=== PATIENT | female | born 1990 | race Caucasian/White ===

== ENCOUNTER 2021-03-23 22:14 | Emergency (ER) | payer BC, SELFPAY ==
[2021-03-23 22:16] VITALS: BP 127/76; PULSE 67; RESP 16; TEMP 36.9; O2SAT 100; BMI 28.3
[2021-03-23 23:01] LABS: Basophils # 0.1 K/mm3 (0-0.2); Basophils % 0.8 % (0.1-2.0); Chloride 106 mmol/L (98-107); Eosinophils # 0.3 K/mm3 (0.0-0.4); Hemoglobin 13.3 g/dL (12.2-16.2); Lymphocytes # 2.9 K/mm3 (0.7-4.5); Lymphocytes % 25.4 % (10-50); Mean Corpuscular Hemoglobin 27.1 pg (27.0-31.2); Mean Corpuscular Volume 79.9 fl (81-99); Mean Platelet Volume 8.4 fl (7.4-10.4); Monocytes # 0.9 K/mm3 (0.1-1.0); Monocytes % 7.4 % (1.7-9.3); Neutrophils # 7.3 K/mm3 (1.8-7.8); Neutrophils % 63.4 % (37.0-80.0); Platelet Count 252 K/mm3 (142-424); Red Blood Count 4.89 M/mm3 (4.20-5.40); Red Cell Distribution Width 13.1 % (11.5-17.5); Sodium 142 mmol/L (136-145); White Blood Count 11.5 K/mm3 (4.8-10.8)
[2021-03-23 23:04] LABS: Alanine Aminotransferase 23 U/L (12-78); Albumin Level 4.4 g/dl (3.5-5.0); Albumin/Globulin Ratio 1.1 (1.1-1.8); Alkaline Phosphatase 67 U/L (38-126); Aspartate Amino Transferase 39 U/L (14-36); Bilirubin,Total 0.4 mg/dl (0.2-1.3); Blood Urea Nitrogen 22 mg/dl (7-17); Carbon Dioxide 29 mmol/L (22.0-30.0); Creatinine Clearance Estimated 100 mL/min (50-200); Estimated Glomerular Filt Rate 73 ml/min (>60); GFR (African American) 88 ML/MIN (>60); Globulin 3.9 g/dL (1.3-3.2); Total Protein,Serum 8.3 g/dl (6.3-8.2)
[2021-03-23 23:05] LABS: Calcium 9.1 mg/dl (8.4-10.2); Glucose 82 mg/dl (74-100)
--- NOTE | 2021-03-23 23:29 | HMH.EDGENADL ---
ED Disposition Clinical Impression: Allergic reaction Qualifiers: Encounter type: initial encounter Qualified Code(s): T78.40XA - Allergy, unspecified, initial encounter Disposition: Home, Self-Care Condition on Discharge: Good Instructions: DI for General Allergic Reactions Additional Instructions: Medrol Dosepak as prescribed. Pepcid as prescribed. [id number] Benadryl 25 mg every 6 hours for 5 days. Additional instructions for ALLERGIC REACTION: See your physician as soon as possible for further evaluation. Return immediately if severe intolerable rash or itching, trouble breathing, or faintness. Prescriptions: methylPREDNISolone [Medrol 4mg tab] 4 mg PO DIRECTED #21 tab Prescription Printed Famotidine [Pepcid 20mg Tablet] 20 mg PO BID 5 Days #10 tab Prescription Printed Referrals: Provider,Referral, [Primary Care Provider] - Forms: Work/School Release - Critical Care Critical Care Time: No Attestation: On 03/23/21, the high probability of a clinically significant, sudden or life threatening deterioration of the following system(s) required my full and direct attention, intervention and personal management. The time I documented below is in addition to time spent performing reported procedures but includes the following listed in this critical care notation. Medical Decision Making - [place]icks[place] Inquiry Pt receiving controlled substance: No Vital Signs: 03/23/21 22:16 03/23/21 23:51 Temperature 98.4 F 98.2 F Temperature Source Oral Oral Pulse Rate 76 Pulse Rate [Right] 67 Respiratory Rate 16 15 Blood Pressure 117/75 Blood Pressure [Right Arm] 127/76 Blood Pressure Mean [Right Arm] 93 Blood Pressure Source Automatic Cuff Blood Pressure Position Sitting 02 Sat by Pulse Oximetry 100 Oxygen Delivery Method Room Air - Lab Data Lab Results 03/23/21 22:30: WBC 11.5 H, RBC 4.89, Hgb 13.3, Hct 39.0, MCV 79.9 L, MCH 27.1, MCHC 34.0, RDW 13.1, Plt Count 252, MPV 8.4, Neut % (Auto) 63.4, Lymph % (Auto) 25.4, [place] % (Auto) 7.4, Eos % (Auto) 3.0, Baso % (Auto) 0.8, Neut # (Auto) 7.3, Lymph # (Auto) 2.9, [place] # (Auto) 0.9, Eos # (Auto) 0.3, Baso # (Auto) 0.1 03/23/21 22:30: Sodium 142, Potassium 4.0, Chloride 106, Carbon Dioxide 29, Anion Gap 11.0, BUN 22 H, Creatinine 0.90, Estimated Creat Clear 100, Estimated GFR 73, Est GFR ( Amer) 88, Glucose 82, Calcium 9.1, Total Bilirubin 0.4, AST 39 H, ALT 23, Alkaline Phosphatase 67, Total Protein 8.3 H, Albumin 4.4, Globulin 3.9 H, Albumin/Globulin Ratio 1.1 Result diagrams: 03/23/21 22:30 03/23/21 22:30 Orders (Tests/Meds): ED MEDICATIONS Discontinued Medications Generic Name Dose Route Start Last Admin Trade Name Zach PRN Reason Stop Dose Admin Diphenhydramine HCl 25 mg 03/23/21 23:39 03/23/21 23:45 Diphenhydramine 50mg/Ml Vial IV 03/23/21 23:40 25 mg ONCE ONE Administration Medical Decision Narrative: Does not want to take prednisone as an outpatient. She says it makes her feel weird. She is agreeable to a Medrol Dosepak. Advised to continue Benadryl for 3 days. General Adult HPI - General Chief complaint: Allergic Reaction Stated complaint: reaction to meat Time Seen by Provider: 03/23/21 23:29 Mode of Arrival: Ambulatory Limitations: No Limitations Description of Symptoms (Recalled from ER Triage Doc. by RN): pt states ate a burrito from [employer] @ 7:30 and it had meat in it. pt states she is allergic to meat. pt c/o her ear are full feeling, throat closing up and face feels numb. 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 She says that she got food from [employer]. She asked them not to use any meat, but she says they put meat in her food anyway and she had a reaction. She has had itching inside of her ears and to a lesser extent generalized itching. No hives. No airway difficulty or tro
[2021-03-23 23:51] VITALS: BP 117/75; PULSE 76; RESP 15; TEMP 36.8; O2SAT 98
== END 2021-03-23 23:53 | disposition home or self-care (01) ==
PROVIDERS: Emergency Provider Emergency Medicine
DX: T78.40XA Allergy, unspecified, initial encounter (principal)
CPT/HCPCS: 80053; 85025; 99282

== ENCOUNTER 2021-06-10 14:01 | Emergency (ER) | payer OTHER, SELFPAY ==
[2021-06-10] VITALS (9 sets, daily range): BP systolic 111–169; BP diastolic 62–97; PULSE 50–72; RESP 12–21; TEMP 36.8–36.9; O2SAT 97–100; BMI 28.3
--- NOTE | 2021-06-10 14:01 | ECG_ITS ---
APPROVED REPORT Exam: Resting ECG HR:61 bpm ECG Measurements Heart Rate 61 AXES LA 152 P 48 QRSd 78 QRS 26 QT 440 T 21 QTc 442 Conclusion Normal sinus rhythm Low voltage QRS ST abnormality, possible digitalis effect Abnormal ECG Electronically signed by : Dewayne Gould MD 06/12/2021 18:00:08
--- NOTE | 2021-06-10 14:24 | HMH.EDGENADL ---
ED Disposition Clinical Impression: Atypical chest pain Disposition: Home, Self-Care Condition on Discharge: Good Instructions: DI for Atypical Chest Pain Additional Instructions: Additional instructions for CHEST PAIN: See your physician as soon as possible for further evaluation. Return immediately if worsening chest pain, vomiting, shortness of breath, fever, coughing of blood. Referrals: Provider,Referral, [Referring] - Forms: Work/School Release - Critical Care Critical Care Time: No Attestation: On 06/10/21, the high probability of a clinically significant, sudden or life threatening deterioration of the following system(s) required my full and direct attention, intervention and personal management. The time I documented below is in addition to time spent performing reported procedures but includes the following listed in this critical care notation. Medical Decision Making - Dickson Inquiry Pt receiving controlled substance: No Vital Signs: 06/10/21 14:04 06/10/21 14:10 06/10/21 14:30 Temperature 98.4 F Temperature Source Oral Pulse Rate 70 63 Pulse Rate [Left Radial] 61 Respiratory Rate 14 18 15 Blood Pressure 130/83 138/89 Blood Pressure [Right Arm] 130/83 Blood Pressure Mean 100 101 Blood Pressure Mean [Right Arm] 98 Blood Pressure Source Blood Pressure Source [Right Arm] Automatic Cuff Blood Pressure Position Blood Pressure Position [Right Arm] Supine 02 Sat by Pulse Oximetry 100 100 99 Oxygen Delivery Method Room Air 06/10/21 15:01 06/10/21 15:30 06/10/21 16:50 Temperature Temperature Source Pulse Rate 59 L 60 55 L Pulse Rate [Left Radial] Respiratory Rate 21 12 16 Blood Pressure 123/89 121/77 162/90 H Blood Pressure [Right Arm] Blood Pressure Mean 101 91 109 Blood Pressure Mean [Right Arm] Blood Pressure Source Blood Pressure Source [Right Arm] Blood Pressure Position Blood Pressure Position [Right Arm] 02 Sat by Pulse Oximetry 100 97 100 Oxygen Delivery Method 06/10/21 17:01 06/10/21 18:26 Temperature Temperature Source Pulse Rate 57 L 50 L Pulse Rate [Left Radial] Respiratory Rate 18 16 Blood Pressure 169/97 H 114/79 Blood Pressure [Right Arm] Blood Pressure Mean 111 Blood Pressure Mean [Right Arm] Blood Pressure Source Automatic Cuff Blood Pressure Source [Right Arm] Blood Pressure Position Sitting Blood Pressure Position [Right Arm] 02 Sat by Pulse Oximetry 100 100 Oxygen Delivery Method Room Air - Lab Data Lab Results 06/10/21 14:00: WBC 9.0, RBC 4.62, Hgb 12.8, Hct 38.3, MCV 82.9, MCH 27.7, MCHC 33.5, RDW 13.1, Plt Count 308, MPV 8.6, Neut % (Auto) 65.8, Lymph % (Auto) 26.1, [place] % (Auto) 4.6, Eos % (Auto) 2.7, Baso % (Auto) 0.8, Neut # (Auto) 5.9, Lymph # (Auto) 2.3, [place] # (Auto) 0.4, Eos # (Auto) 0.2, Baso # (Auto) 0.1 06/10/21 14:00: Sodium 140, Potassium 3.6, Chloride 107, Carbon Dioxide 28, Anion Gap 8.6, BUN 11, Creatinine 0.70, Estimated Creat Clear 128, Estimated GFR 97, Est GFR ( Amer) 117, Glucose 107 H, Calcium 8.9, Troponin I < 0.01 06/10/21 14:21: Urine Color Straw, Urine Appearance Clear, Urine pH 6.0, Ur Specific [place] 1.010, Urine Protein Negative, Urine Glucose (UA) Negative, Urine Ketones Negative, Urine Blood Trace-i, Urine Nitrate Negative, Urine Bilirubin Negative, Urine Urobilinogen 0.2, Ur Leukocyte Esterase Negative, Urine RBC Occasional, Urine Bacteria Trace 06/10/21 14:21: Urine HCG, Qual Negative 06/10/21 18:00: Troponin I < 0.01 Result diagrams: 06/10/21 14:00 06/10/21 14:00 Orders (Tests/Meds): ORDERS Category Date Time Status Troponin I Q3H Lab 06/10/21 20:30 Ordered - Radiology Data #1 Image(s): Chest Image Reviewed: Yes I reviewed the patient's radiology image, Yes I have reviewed radiologist's interpretation PROCEDURE INFORMATION: Exam: XR Chest Exam date and time: 06/10/2021 2:26 PM Age: 30 years old Clinical ind
--- NOTE | 2021-06-10 14:26 | XR_ITS ---
PROCEDURE INFORMATION: Exam: XR Chest Exam date and time: 06/10/2021 2:26 PM Age: 30 years old Clinical indication: Chest wall pain; Patient HX: Has mitrel value issues-- chest pain TECHNIQUE: Imaging protocol: XR of the chest. Views: 2 views. COMPARISON: No relevant prior studies available. FINDINGS: Lungs: Unremarkable. No consolidation. Pleural spaces: Unremarkable. No pleural effusion. No pneumothorax. Heart/Mediastinum: Unremarkable. No cardiomegaly. Bones/joints: Unremarkable. IMPRESSION: No acute findings.
[2021-06-10 14:33] LABS: Basophils # 0.1 K/mm3 (0-0.2); Basophils % 0.8 % (0.1-2.0); Eosinophils # 0.2 K/mm3 (0.0-0.4); Eosinophils % 2.7 % (0.1-12.0); Hematocrit 38.3 % (37.0-47.0); Hemoglobin 12.8 g/dL (12.2-16.2); Lymphocytes # 2.3 K/mm3 (0.7-4.5); Lymphocytes % 26.1 % (10-50); Mean Corpuscular HGB Conc 33.5 g/dL (31.8-35.4); Mean Corpuscular Hemoglobin 27.7 pg (27.0-31.2); Mean Corpuscular Volume 82.9 fl (81-99); Mean Platelet Volume 8.6 fl (7.4-10.4); Monocytes # 0.4 K/mm3 (0.1-1.0); Monocytes % 4.6 % (1.7-9.3); Neutrophils # 5.9 K/mm3 (1.8-7.8); Neutrophils % 65.8 % (37.0-80.0); Platelet Count 308 K/mm3 (142-424); Red Blood Count 4.62 M/mm3 (4.20-5.40); Red Cell Distribution Width 13.1 % (11.5-17.5)
[2021-06-10 14:34] LABS: Microscopic, Urine URINE MICROSCOPIC (MICROSCOPIC)
[2021-06-10 14:35] LABS: Appearance,Urine CLEAR (Clear); Bilirubin,Urine Negative (Negative); Blood, Urine TRACE-I (Negative); Color,Urine STRAW (Yellow); Glucose,Urine (UA) Negative (Negative); Ketones,Urine Negative (Negative); Leukocyte Esterase,Urine Negative (Negative); Nitrate,Urine Negative (Negative); Protein,Urine Negative (Negative); Urobilinogen,Urine 0.2 EU/dl (0.2)
[2021-06-10 14:37] LABS: Anion Gap 8.6 mEq/L (5-15); Blood Urea Nitrogen 11 mg/dl (7-17); Calcium 8.9 mg/dl (8.4-10.2); Carbon Dioxide 28 mmol/L (22.0-30.0); Chloride 107 mmol/L (98-107); Creatinine Clearance Estimated 128 mL/min (50-200); Estimated Glomerular Filt Rate 97 ml/min (>60); GFR (African American) 117 ML/MIN (>60); Glucose 107 mg/dl (74-100); Potassium 3.6 mmoL/L (3.5-5.1); Sodium 140 mmol/L (136-145)
[2021-06-10 14:38] LABS: Urine Pregnancy, HCG Qual. Negative (Negative)
[2021-06-10 14:43] LABS: Bacteria,Urine Trace /lpf; RBC,Urine Occasional #/hpf (0-3)
[2021-06-10 14:49] LABS: Troponin I < 0.01 ng/ml (0.00-0.034)
[2021-06-10 18:25] LABS: Troponin I < 0.01 ng/ml (0.00-0.034)
== END 2021-06-10 18:54 | disposition home or self-care (01) ==
PROVIDERS: Emergency Provider Emergency Medicine; PCP Family Medicine
DX: R07.89 Other chest pain (principal); R42 Dizziness and giddiness; Z87.891 Personal history of nicotine dependence
CPT/HCPCS: 71046; 80048; 81001; 81025; 84484; 85025; 93005; 99283

== ENCOUNTER 2021-06-24 07:23 | Emergency (ER) | payer OTHER, SELFPAY ==
[2021-06-24 07:38] VITALS: BP 123/71; PULSE 70; RESP 17; TEMP 37.1; O2SAT 97; BMI 28.1
--- NOTE | 2021-06-24 07:57 | CT_ITS ---
PROCEDURE INFORMATION: Exam: CT Abdomen And Pelvis With Contrast Exam date and time: 06/24/2021 7:57 AM Age: 30 years old Clinical indication: Abdominal pain; Generalized; Additional info: Pain// abd discomfort that doesn't improve TECHNIQUE: Imaging protocol: Computed tomography of the abdomen and pelvis with contrast. Radiation optimization: All CT scans at this facility use at least one of these dose optimization techniques: automated exposure control; mA and/or kV adjustment per patient size (includes targeted exams where dose is matched to clinical indication); or iterative reconstruction. Contrast material: ISOVUE; Contrast volume: 75 ml; Contrast route: IV; COMPARISON: CR XR CHEST 2V 06/10/2021 2:30 PM FINDINGS: Liver: Normal. No mass. Gallbladder and bile ducts: Normal. No calcified stones. No ductal dilation. Pancreas: Normal. No ductal dilation. Spleen: Normal. No splenomegaly. Adrenal glands: Normal. No mass. Kidneys and ureters: Normal. No hydronephrosis. Stomach and bowel: Unremarkable. No obstruction. No mucosal thickening. Appendix: A normal appendix is identified. Intraperitoneal space: Unremarkable. No free air. No significant fluid collection. Vasculature: Unremarkable. No abdominal aortic aneurysm. Lymph nodes: Unremarkable. No enlarged lymph nodes. Urinary bladder: Unremarkable as visualized. Reproductive: There is a simple 2.6 cm cyst in the left ovary. Bones/joints: Unremarkable. No acute fracture. Soft tissues: Unremarkable. IMPRESSION: No acute findings.
[2021-06-24 08:08] LABS: Basophils # 0.1 K/mm3 (0-0.2); Basophils % 0.8 % (0.1-2.0); Eosinophils # 0.3 K/mm3 (0.0-0.4); Eosinophils % 2.8 % (0.1-12.0); Hematocrit 39.9 % (37.0-47.0); Hemoglobin 12.9 g/dL (12.2-16.2); Lymphocytes # 2.2 K/mm3 (0.7-4.5); Lymphocytes % 23.2 % (10-50); Mean Corpuscular HGB Conc 32.2 g/dL (31.8-35.4); Mean Corpuscular Hemoglobin 27.7 pg (27.0-31.2); Mean Platelet Volume 10.3 fl (7.4-10.4); Monocytes # 0.7 K/mm3 (0.1-1.0); Neutrophils # 6.3 K/mm3 (1.8-7.8); Neutrophils % 66.2 % (37.0-80.0); Platelet Count 280 K/mm3 (142-424); Red Blood Count 4.63 M/mm3 (4.20-5.40); Red Cell Distribution Width 13.3 % (11.5-17.5); White Blood Count 9.6 K/mm3 (4.8-10.8)
--- NOTE | 2021-06-24 08:09 | PC.NURSE ---
Called rad for CT. Stated that she will be down once done with existing pt on floor.
[2021-06-24 08:17] LABS: HCG Qualitative, Serum Negative (Negative)
--- NOTE | 2021-06-24 08:17 | HMH.ITSTN ---
waiting on labs for CT
[2021-06-24 08:19] LABS: Chloride 105 mmol/L (98-107); Sodium 140 mmol/L (136-145)
--- NOTE | 2021-06-24 08:19 | HMH.EDGENADL ---
ED Disposition Clinical Impression: Ovarian cyst Qualifiers: Laterality: left Qualified Code(s): N83.202 - Unspecified ovarian cyst, left side Disposition: Home, Self-Care Condition on Discharge: Good Instructions: DI for Acute Abdominal Pain Additional Instructions: You were evaluated the emergency department today for abdominal pain, found to have symptomatic left-sided ovarian cyst. Use ibuprofen 600 mg every 6 hours, acetaminophen 650 mg every 6 hours for pain control, follow-up with your PCP in the next 5 to 7 days for monitoring of any persistent symptoms and coordination of ongoing care needs. This may include consultation or referral to a forest fire fighter. Return to the emergency department at that hesitation with any new or worsening symptoms. Referrals: Heena Walker [Primary Care Provider] - - Critical Care Critical Care Time: No Attestation: On 06/24/21, the high probability of a clinically significant, sudden or life threatening deterioration of the following system(s) required my full and direct attention, intervention and personal management. The time I documented below is in addition to time spent performing reported procedures but includes the following listed in this critical care notation. Medical Decision Making - Dickson Inquiry Pt receiving controlled substance: No Vital Signs: 06/24/21 07:38 Temperature 98.7 F Temperature Source Oral Pulse Rate [Right Radial] 70 Respiratory Rate 17 Blood Pressure [Right Arm] 123/71 Blood Pressure Mean [Right Arm] 88 Blood Pressure Source [Right Arm] Automatic Cuff Blood Pressure Position [Right Arm] Sitting 02 Sat by Pulse Oximetry 97 Oxygen Delivery Method Room Air - Lab Data Lab Results 06/24/21 07:48: WBC 9.6, RBC 4.63, Hgb 12.9, Hct 39.9, MCV 86.0, MCH 27.7, MCHC 32.2, RDW 13.3, Plt Count 280, MPV 10.3, Neut % (Auto) 66.2, Lymph % (Auto) 23.2, [place] % (Auto) 7.0, Eos % (Auto) 2.8, Baso % (Auto) 0.8, Neut # (Auto) 6.3, Lymph # (Auto) 2.2, [place] # (Auto) 0.7, Eos # (Auto) 0.3, Baso # (Auto) 0.1 06/24/21 07:48: Sodium 140, Potassium 4.1, Chloride 105, Carbon Dioxide 28, Anion Gap 11.1, BUN 15, Creatinine 0.70, Estimated Creat Clear 127, Estimated GFR 97, Est GFR ( Amer) 117, Glucose 104 H, Calcium 9.1, Total Bilirubin 0.5, AST 33, ALT 18, Alkaline Phosphatase 61, Total Protein 7.7, Albumin 4.1, Globulin 3.6 H, Albumin/Globulin Ratio 1.1, Amylase 56, Lipase 45 06/24/21 07:48: Serum HCG, Qual Negative 06/24/21 09:21: Urine Color Yellow, Urine Appearance Sl cloudy, Urine pH 6.0, Ur Specific [place] 1.025, Urine Protein Negative, Urine Glucose (UA) Negative, Urine Ketones Negative, Urine Blood Negative, Urine Nitrate Negative, Urine Bilirubin Negative, Urine Urobilinogen 0.2, Ur Leukocyte Esterase 1+ A, Urine RBC None, Urine WBC 3-5, Ur Squamous Epith Cells Occasional, Urine Bacteria Trace Result diagrams: 06/24/21 07:48 06/24/21 07:48 Orders (Tests/Meds): ED MEDICATIONS Discontinued Medications Generic Name Dose Route Start Last Admin Trade Name Freq PRN Reason Stop Dose Admin Sodium Chloride 1,000 mls @ 999 mls/hr 06/24/21 08:00 06/24/21 08:04 Sod Chlor 0.9% 1000ml Bag IV 06/24/21 09:00 999 mls/hr .Q1H1M MAURICIO Administration Iopamidol 75 ml 06/24/21 08:39 06/24/21 08:40 Iopamidol-370 (76%);100ml Bottle IV 06/24/21 08:40 75 ml ONCE ONE Administration Ketorolac Tromethamine 30 mg 06/24/21 08:05 06/24/21 08:06 Ketorolac 30mg/Ml Vial IV 06/24/21 08:06 30 mg ONCE ONE Administration Ondansetron HCl 4 mg 06/24/21 08:05 06/24/21 08:06 Ondansetron 4mg/2ml Vial IV 06/24/21 08:06 4 mg ONCE ONE Administration Sodium Chloride 10 ml 06/24/21 08:39 06/24/21 08:40 Sodium Chloride 0.9% 10ml Syr (Rad Only) IV 06/24/21 08:40 10 ml ONCE ONE Administration ORDERS Category Date Time Status US transvaginal Stat Exams 06/24/21 09:12 Ordered Urine Culture Stat Micro 06/24/21 09:21 Received Me
[2021-06-24 08:20] LABS: Potassium 4.1 mmoL/L (3.5-5.1)
[2021-06-24 08:22] LABS: Alanine Aminotransferase 18 U/L (12-78); Alkaline Phosphatase 61 U/L (38-126); Amylase 56 U/L (30-110); Anion Gap 11.1 mEq/L (5-15); Aspartate Amino Transferase 33 U/L (14-36); Bilirubin,Total 0.5 mg/dl (0.2-1.3); Blood Urea Nitrogen 15 mg/dl (7-17); Carbon Dioxide 28 mmol/L (22.0-30.0); Creatinine Clearance Estimated 127 mL/min (50-200); Estimated Glomerular Filt Rate 97 ml/min (>60); GFR (African American) 117 ML/MIN (>60)
[2021-06-24 08:23] LABS: Albumin Level 4.1 g/dl (3.5-5.0); Albumin/Globulin Ratio 1.1 (1.1-1.8); Calcium 9.1 mg/dl (8.4-10.2); Globulin 3.6 g/dL (1.3-3.2); Glucose 104 mg/dl (74-100); Lipase 45 U/L (23-300); Total Protein,Serum 7.7 g/dl (6.3-8.2)
--- NOTE | 2021-06-24 08:25 | PC.NURSE ---
Pt going to CT
--- NOTE | 2021-06-24 08:38 | PC.NURSE ---
Pt came back from CT.
--- NOTE | 2021-06-24 09:12 | US_ITS ---
PROCEDURE INFORMATION: Exam: US Pelvis, Transvaginal Exam date and time: 06/24/2021 9:12 AM Age: 30 years old Clinical indication: Other: Left ovary pain; Additional info: Cyst in ovary per CT pain left ovary RO torsion TECHNIQUE: Imaging protocol: Real-time transvaginal pelvic ultrasound with image documentation. Transvaginal imaging was used for better evaluation of the endometrium, adnexa, and/or cervix. COMPARISON: CT ABDOMEN PELVIS W CON 06/24/2021 8:29 AM FINDINGS: Uterus/cervix: Uterus is normal. Measures 9.1 x 5.5 x 5.7 cm. Endometrial stripe is normal. Right adnexa: Normal. Ovary measures 3.0 x 1.8 x 2.1 cm. No mass. Normal ovarian blood flow. Left adnexa: Normal. Ovary measures 4.6 x 2.4 x 2.4 cm. No mass. Normal ovarian blood flow. A left ovarian mildly complex cyst measures 2.4 x 1.9 x 1.6 cm. Intraperitoneal space: No free fluid. IMPRESSION: A left ovarian mildly complex cyst measures 2.4 x 1.9 x 1.6 cm. Normal ovarian blood flow.
[2021-06-24 09:27] LABS: Microscopic, Urine URINE MICROSCOPIC (MICROSCOPIC)
[2021-06-24 09:29] LABS: Appearance,Urine SL CLOUDY (Clear); Bilirubin,Urine Negative (Negative); Blood, Urine Negative (Negative); Color,Urine YELLOW (Yellow); Glucose,Urine (UA) Negative (Negative); Ketones,Urine Negative (Negative); Leukocyte Esterase,Urine 1+ (Negative); Nitrate,Urine Negative (Negative); Protein,Urine Negative (Negative); Specific Gravity, Urine 1.025 (1.005-1.030); Urobilinogen,Urine 0.2 EU/dl (0.2)
[2021-06-24 09:45] LABS: Squamous Epithelial Cell,Urine Occasional #/hpf (0-5)
[2021-06-24 09:46] LABS: Bacteria,Urine Trace /lpf
--- NOTE | 2021-06-24 09:57 | PC.NURSE ---
Pt to US
[2021-06-24 11:20] VITALS: BP 139/74; PULSE 63; RESP 17; TEMP 36.7; O2SAT 98
[2021-06-24 12:03] VITALS: BP 124/70; PULSE 70; RESP 16; TEMP 36.9; O2SAT 98
== END 2021-06-24 12:04 | disposition home or self-care (01) ==
PROVIDERS: Student in an Organized Health Care Education/Training Program; Emergency Provider Emergency Medicine; PCP Family Medicine
DX: N83.202 Unspecified ovarian cyst, left side (principal)
CPT/HCPCS: 74177; 76830; 80053; 81001; 82150; 83690; 84703; 85025; 87086; 96365; 96375; 99283; J2405; Q9967

== ENCOUNTER 2021-09-16 09:32 | Emergency (ER) | payer BC, OTHER, SELFPAY ==
[2021-09-16 09:32] VITALS: BP 150/88; PULSE 89; RESP 16; TEMP 36.6; O2SAT 100; BMI 26.5
--- NOTE | 2021-09-16 10:36 | CT_ITS ---
PROCEDURE INFORMATION: Exam: CT Abdomen And Pelvis With Contrast Exam date and time: 09/16/2021 10:36 AM Age: 31 years old Clinical indication: Other: Blood in stool and pain; Additional info: Abd pain, gi bleed, weight loss TECHNIQUE: Imaging protocol: Computed tomography of the abdomen and pelvis with contrast. Radiation optimization: All CT scans at this facility use at least one of these dose optimization techniques: automated exposure control; mA and/or kV adjustment per patient size (includes targeted exams where dose is matched to clinical indication); or iterative reconstruction. Contrast material: ISOVUE; Contrast volume: 75 ml; Contrast route: IV; COMPARISON: CT ABDOMEN PELVIS W CON 06/24/2021 8:29 AM FINDINGS: Diaphragm: There may be a small hiatal hernia. The stomach is otherwise normal in appearance.The small bowel is normal in appearance, without evidence of wall thickening, perienteric inflammatory change, or small bowel obstruction. Liver: The liver is normal in appearance, without evidence of mass or intrahepatic bile duct dilatation. Gallbladder and bile ducts: The gallbladder is normal appearance, without evidence of gallbladder wall thickening or pericholecystic fluid. Pancreas: The pancreas is normal in appearance, without evidence of mass, cyst, peripancreatic inflammatory change, or pancreatic duct dilatation. Spleen: The spleen is normal in appearance. Adrenal glands: Both adrenal glands are normal in appearance, without evidence of mass or focal abnormality. Kidneys and ureters: Both kidneys are normal in appearance, without evidence of nephrolithiasis or hydronephrosis. Stomach and bowel: The terminal ileum and cecum are within normal limits. The colon is incompletely distended. Nondistended views of the ascending, transverse, and descending colon are within normal limits. Sigmoid colon and rectum are unremarkable. Appendix: The appendix is normal in appearance, without evidence of wall thickening or periappendiceal fat stranding. Intraperitoneal space: Unremarkable. No free air. No significant fluid collection. Vasculature: Unremarkable. No abdominal aortic aneurysm. Lymph nodes: Unremarkable. No enlarged lymph nodes. Urinary bladder: Unremarkable as visualized. Reproductive: Unremarkable as visualized. Bones/joints: Unremarkable. No acute fracture. Soft tissues: Unremarkable. IMPRESSION: 1. No evidence of acute abdominal or pelvic abnormality. 2. Further evaluation with direct colonoscopic visualization is suggested.
--- NOTE | 2021-09-16 10:42 | HMH.EDGENADL ---
ED Disposition Clinical Impression: Bloody stool Disposition: Home, Self-Care Condition on Discharge: Good Instructions: DI for Acute Pain -- Adult Prescriptions: Famotidine [Acid Controller] 20 mg PO DAILY #30 tab Transmission Status: Pending to [id number] Referrals: Heena Walker [Primary Care Provider] - - Critical Care Critical Care Time: No Attestation: On , the high probability of a clinically significant, sudden or life threatening deterioration of the following system(s) required my full and direct attention, intervention and personal management. The time I documented below is in addition to time spent performing reported procedures but includes the following listed in this critical care notation. Medical Decision Making - Dickson Inquiry Pt receiving controlled substance: No Vital Signs: 09/16/21 09:32 Temperature 98 F Temperature Source Oral Pulse Rate [Right] 89 Respiratory Rate 16 Blood Pressure [Right Arm] 150/88 H Blood Pressure Mean [Right Arm] 108 Blood Pressure Source [Right Arm] Automatic Cuff Blood Pressure Position [Right Arm] Sitting 02 Sat by Pulse Oximetry 100 Oxygen Delivery Method Room Air - Lab Data Lab Results 09/16/21 10:20: WBC 8.5, RBC 4.67, Hgb 12.8, Hct 39.0, MCV 83.6, MCH 27.4, MCHC 32.8, RDW 13.6, Plt Count 270, MPV 8.8, Neut % (Auto) 69.9, Lymph % (Auto) 17.2, [place] % (Auto) 8.4, Eos % (Auto) 3.0, Baso % (Auto) 1.4, Neut # (Auto) 6.0, Lymph # (Auto) 1.5, [place] # (Auto) 0.7, Eos # (Auto) 0.3, Baso # (Auto) 0.1 09/16/21 10:20: Sodium 142, Potassium 3.6, Chloride 105, Carbon Dioxide 31 H, Anion Gap 9.6, BUN 16, Creatinine 0.70, Estimated Creat Clear 119, Estimated GFR 96, Est GFR ( Amer) 117, Glucose 96, Calcium 9.0, Total Bilirubin 0.3, AST 38 H, ALT 26, Alkaline Phosphatase 65, Total Protein 7.5, Albumin 4.1, Globulin 3.4 H, Albumin/Globulin Ratio 1.2, TSH 0.89, Thyroxine (T4) 8.7 Result diagrams: 09/16/21 10:20 09/16/21 10:20 Orders (Tests/Meds): ED MEDICATIONS Generic Name Dose Route Start Last Admin Trade Name Freq PRN Reason Stop Dose Admin Famotidine 20 mg 09/16/21 21:00 09/16/21 11:39 Famotidine 20mg/2ml Vial IV 10/16/21 20:59 20 mg HS MAURICIO Administration Sodium Chloride 8 ml 09/16/21 10:39 Sodium Chloride 0.9% 10ml Vial IV 10/16/21 10:38 NEEDED PRN dilute pepcid Discontinued Medications Generic Name Dose Route Start Last Admin Trade Name Freq PRN Reason Stop Dose Admin Belladonna Alkaloids 60 ml 09/16/21 10:42 09/16/21 11:39 Gi Cocktail 60ml Udc PO 09/16/21 10:43 60 ml ONCE ONE Administration Iopamidol 75 ml 09/16/21 11:39 09/16/21 11:40 Iopamidol-370 (76%);100ml Bottle IV 09/16/21 11:40 75 ml ONCE ONE Administration Ondansetron HCl 4 mg 09/16/21 10:37 09/16/21 11:38 Ondansetron 4mg/2ml Vial IV 09/16/21 10:38 4 mg ONCE ONE Administration Sodium Chloride 10 ml 09/16/21 11:39 09/16/21 11:40 Sodium Chloride 0.9% 10ml Syr (Rad Only) IV 09/16/21 11:40 10 ml ONCE ONE Administration Medical Decision Narrative: DDx includes but not limited to malignancy, peptic ulcer, colonic polyp, diverticulitis, diverticular bleeding, gastritis. HDS, NAD, well appearing, nonperitonitic abd. Labs including cbc, cmp, thyroid studies without acute and actionable findings emergently. CT A/P w/ contrast without acute findings. Advised to follow up CASEY with pcp regarding need for possible gi endoscopy. patient amenable to plan. continues to remain well appearing, nad, hds. pain improved with famotidine and gi cocktail. will rx famotidine. given ed return precautions. General Adult HPI - General Chief complaint: PAIN Stated complaint: blood in stool Time Seen by Provider: 09/16/21 10:44 Mode of Arrival: Ambulatory Limitations: No Limitations Description of Symptoms (Recalled from ER Triage Doc. by RN): Pt c/o epigastric pain when eating and blood in her stool for the pas
[2021-09-16 10:48] LABS: Basophils # 0.1 K/mm3 (0-0.2); Basophils % 1.4 % (0.1-2.0); Eosinophils # 0.3 K/mm3 (0.0-0.4); Hemoglobin 12.8 g/dL (12.2-16.2); Lymphocytes # 1.5 K/mm3 (0.7-4.5); Lymphocytes % 17.2 % (10-50); Mean Corpuscular HGB Conc 32.8 g/dL (31.8-35.4); Mean Corpuscular Hemoglobin 27.4 pg (27.0-31.2); Mean Corpuscular Volume 83.6 fl (81-99); Mean Platelet Volume 8.8 fl (7.4-10.4); Monocytes # 0.7 K/mm3 (0.1-1.0); Monocytes % 8.4 % (1.7-9.3); Neutrophils % 69.9 % (37.0-80.0); Platelet Count 270 K/mm3 (142-424); Red Blood Count 4.67 M/mm3 (4.20-5.40); Red Cell Distribution Width 13.6 % (11.5-17.5); White Blood Count 8.5 K/mm3 (4.8-10.8)
[2021-09-16 10:55] LABS: Chloride 105 mmol/L (98-107); Potassium 3.6 mmoL/L (3.5-5.1); Sodium 142 mmol/L (136-145)
[2021-09-16 10:58] LABS: Alanine Aminotransferase 26 U/L (12-78); Albumin Level 4.1 g/dl (3.5-5.0); Albumin/Globulin Ratio 1.2 (1.1-1.8); Alkaline Phosphatase 65 U/L (38-126); Anion Gap 9.6 mEq/L (5-15); Aspartate Amino Transferase 38 U/L (14-36); Bilirubin,Total 0.3 mg/dl (0.2-1.3); Blood Urea Nitrogen 16 mg/dl (7-17); Carbon Dioxide 31 mmol/L (22.0-30.0); Creatinine Clearance Estimated 119 mL/min (50-200); Estimated Glomerular Filt Rate 96 ml/min (>60); GFR (African American) 117 ML/MIN (>60); Globulin 3.4 g/dL (1.3-3.2); Glucose 96 mg/dl (74-100); Total Protein,Serum 7.5 g/dl (6.3-8.2)
[2021-09-16 11:15] LABS: T4 (Thyroxine) 8.7 ug/dl (5.53-11.0)
[2021-09-16 11:29] LABS: Thyroid Stimulating Hormone 0.89 uIU/mL (0.465-4.68)
--- NOTE | 2021-09-16 11:47 | PC.NURSE ---
11:47; Taty Gudino, RN at bedside
[2021-09-16 13:29] VITALS: BP 122/70; PULSE 65; RESP 16; TEMP 36.8; O2SAT 98
== END 2021-09-16 13:30 | disposition home or self-care (01) ==
PROVIDERS: Emergency Provider Student in an Organized Health Care Education/Training Program; PCP Family Medicine
DX: K92.1 Melena (principal); R10.13 Epigastric pain; M79.7 Fibromyalgia
CPT/HCPCS: 74177; 80053; 84436; 84443; 85025; 96374; 96375; 99283; J2405; Q9967

== ENCOUNTER 2021-12-20 22:05 | Emergency (ER) | payer OTHER, SELFPAY ==
--- NOTE | 2021-12-20 22:02 | ECG_ITS ---
APPROVED REPORT Exam: Resting ECG HR:68 bpm ECG Measurements Heart Rate 68 AXES FL 152 P 71 QRSd 78 QRS 70 QT 396 T 61 QTc 414 Conclusion SINUS RHYTHM WITH SINUS ARRHYTHMIA NORMAL ECG UNCONFIRMED REPORT Electronically signed by : Dewayne Gould MD 12/21/2021 07:58:59
[2021-12-20 22:06] VITALS: BP 115/72; PULSE 76; RESP 16; TEMP 37; O2SAT 100; BMI 26.5
--- NOTE | 2021-12-20 22:34 | XR_ITS ---
PROCEDURE INFORMATION: Exam: XR Chest Exam date and time: 12/20/2021 10:39 PM Age: 31 years old Clinical indication: Pain; Left-sided; Additional info: Cp TECHNIQUE: Imaging protocol: XR of the chest. Views: 2 views. COMPARISON: CR XR CHEST 2V 06/10/2021 2:30 PM FINDINGS: Lungs: No consolidation. Pleural spaces: No significant pleural effusion. No pneumothorax. Heart/Mediastinum: No cardiomegaly. Bones/joints: No displaced fracture. Soft tissues: Unremarkable. IMPRESSION: No definite acute cardiopulmonary disease.
[2021-12-20 22:51] LABS: Chloride 105 mmol/L (98-107); Sodium 141 mmol/L (136-145)
[2021-12-20 22:52] LABS: Potassium 3.8 mmoL/L (3.5-5.1)
[2021-12-20 22:54] LABS: Blood Urea Nitrogen 19 mg/dl (7-17); Creatinine Clearance Estimated 92 mL/min (50-200); Estimated Glomerular Filt Rate 72 ml/min (>60); GFR (African American) 87 ML/MIN (>60)
[2021-12-20 22:55] LABS: Anion Gap 9.8 mEq/L (5-15); Calcium 9.5 mg/dl (8.4-10.2); Carbon Dioxide 30 mmol/L (22.0-30.0); Glucose 95 mg/dl (74-100)
[2021-12-20 23:09] LABS: Troponin I < 0.01 ng/ml (0.00-0.034)
--- NOTE | 2021-12-20 23:09 | HMH.EDCP ---
ED Disposition Clinical Impression: Chest pain Qualifiers: Chest pain type: precordial pain Qualified Code(s): R07.2 - Precordial pain Disposition: Home, Self-Care Condition on Discharge: Good Instructions: DI for Atypical Chest Pain Additional Instructions: call pcp and card for follow up Referrals: Heena Walker [Primary Care Provider] - - Critical Care Critical Care Time: No Attestation: On 12/20/21, the high probability of a clinically significant, sudden or life threatening deterioration of the following system(s) required my full and direct attention, intervention and personal management. The time I documented below is in addition to time spent performing reported procedures but includes the following listed in this critical care notation. Medical Decision Making - Medical Records Medical records reviewed: Yes: I reviewed the patient's medical records. - Dickson Inquiry Pt receiving controlled substance: No Vital Signs: 12/20/21 22:06 Temperature 98.6 F Temperature Source Oral Pulse Rate [Left] 76 Respiratory Rate 16 Blood Pressure [Right Arm] 115/72 Blood Pressure Mean [Right Arm] 86 02 Sat by Pulse Oximetry 100 Oxygen Delivery Method Room Air - Lab Data Lab results reviewed: Yes: I reviewed the patient's lab results. Lab Results 12/20/21 22:19: Sodium 141, Potassium 3.8, Chloride 105, Carbon Dioxide 30, Anion Gap 9.8, BUN 19 H, Creatinine 0.90, Estimated Creat Clear 92, Estimated GFR 72, Est GFR ( Amer) 87, Glucose 95, Calcium 9.5, Troponin I < 0.01 12/20/21 22:19: Serum HCG, Qual Negative Result diagrams: 12/20/21 22:19 Orders (Tests/Meds): ED MEDICATIONS Generic Name Dose Route Start Last Admin Trade Name Freq PRN Reason Stop Dose Admin Lactated Ringer's 1,000 mls @ 999 mls/hr 12/20/21 23:30 12/20/21 23:31 Lactated Ringer's 1000 Ml Bag IV 12/21/21 00:30 999 mls/hr .Q1H1M MAURICIO Administration Discontinued Medications Generic Name Dose Route Start Last Admin Trade Name Freq PRN Reason Stop Dose Admin Aspirin 324 mg 12/20/21 22:34 12/20/21 22:38 Aspirin 81mg Chewable Tablet PO 12/20/21 22:35 324 mg ONCE ONE Administration Iopamidol 70 ml 12/21/21 00:20 12/21/21 00:21 Iopamidol-370 (76%);100ml Bottle IV 12/21/21 00:21 70 ml ONCE ONE Administration Morphine Sulfate 4 mg 12/20/21 23:17 12/20/21 23:31 Morphine 4mg/Ml Syringe IV 12/20/21 23:18 4 mg ONCE ONE Administration Nitroglycerin 0.4 mg 12/20/21 22:34 12/20/21 22:38 Nitroglycerin 0.4mg Sl Tablet SL 12/20/21 22:35 0.4 mg ONCE ONE Administration Nitroglycerin 1 gm 12/20/21 23:03 12/20/21 23:03 Nitroglycerin 1 Gm Ointment TD 12/20/21 23:04 1 gm ONCE ONE Administration Ondansetron HCl 4 mg 12/20/21 23:17 12/20/21 23:31 Ondansetron 4mg/2ml Vial IV 12/20/21 23:18 4 mg ONCE ONE Administration Sodium Chloride 50 ml 12/21/21 00:20 12/21/21 00:21 0.9 % Sodium Chloride 50 Ml Vial IV 12/21/21 00:21 50 ml ONCE ONE Administration Sodium Chloride 10 ml 12/21/21 00:20 12/21/21 00:21 Sodium Chloride 0.9% 10ml Syr (Rad Only) IV 12/21/21 00:21 10 ml ONCE ONE Administration ORDERS Category Date Time Status Complete Blood Count Auto Diff Stat Lab 12/20/21 22:19 Received Troponin I Q3H Lab 12/21/21 01:18 Received Troponin I Q3H Lab 12/21/21 04:45 Ordered - ECG Data Tracing #1 Normal Sinus Rhythm: Yes Ischemic changes: non-specific ST-T wave changes Medical Decision Narrative: pt with stable exam and labs and with hx of mvp and willask pt to see pcp and card Chest Pain HPI - General Chief Complaint: Chest Pain Stated Complaint: CP Time Seen by Provider: 12/20/21 23:09 Mode of Arrival: Ambulatory Source of Information: Patient, Significant Other, Medical Record Limitations: No Limitations Description of Symptoms (Recalled from ER Triage Doc. by RN): pt states she is having sharp pain in the left si
[2021-12-20 23:42] LABS: HCG Qualitative, Serum Negative (Negative)
--- NOTE | 2021-12-21 | CT_ITS ---
PROCEDURE INFORMATION: Exam: CTA Chest With Contrast Exam date and time: 12/21/2021 12:09 AM Age: 31 years old Clinical indication: Pain; Left-sided; Additional info: Cp TECHNIQUE: Imaging protocol: Computed tomographic angiography of the chest with contrast. 3D rendering (Not supervised by radiologist): MIP and/or 3D reconstructed images were created by the technologist. Radiation optimization: All CT scans at this facility use at least one of these dose optimization techniques: automated exposure control; mA and/or kV adjustment per patient size (includes targeted exams where dose is matched to clinical indication); or iterative reconstruction. Contrast material: ISOVUE; Contrast volume: 70 ml; Contrast route: INTRAVENOUS (IV); COMPARISON: CR XR CHEST 2V 12/20/2021 10:39 PM FINDINGS: Pulmonary arteries: No pulmonary embolism. Aorta: Unremarkable. No aneurysm. Lungs: No consolidation. Few nodules and/or focal scarring, up to 0.3 cm. Pleural spaces: No significant pleural effusion. No pneumothorax. Heart: No cardiomegaly. No pericardial effusion. Lymph nodes: No pathologically enlarged lymph nodes. Bones/joints: No acute fracture. Soft tissues: Unremarkable. IMPRESSION: 1. No CT evidence of pulmonary embolism. 2. Pulmonary nodules. If patient does not have known cancer, follow up should be based on clinical information because of the low risk of cancer in this age group. (mary lou Triplett al., Fleischner Society, 2017).
[2021-12-21 02:00] LABS: Troponin I < 0.01 ng/ml (0.00-0.034)
[2021-12-21 02:06] VITALS: BP 127/76; PULSE 55; RESP 16; TEMP 37.1; O2SAT 100
[2021-12-21 03:44] LABS: Basophils # 0.1 K/mm3 (0-0.2); Basophils % 0.6 % (0.1-2.0); Eosinophils # 0.4 K/mm3 (0.0-0.4); Eosinophils % 3.7 % (0.1-12.0); Hematocrit 39.1 % (37.0-47.0); Hemoglobin 12.8 g/dL (12.2-16.2); Lymphocytes % 18.2 % (10-50); Mean Corpuscular HGB Conc 32.7 g/dL (31.8-35.4); Mean Corpuscular Hemoglobin 26.2 pg (27.0-31.2); Mean Platelet Volume 12.3 fl (7.4-10.4); Monocytes # 0.8 K/mm3 (0.1-1.0); Monocytes % 7.5 % (1.7-9.3); Neutrophils # 7.6 K/mm3 (1.8-7.8); Neutrophils % 69.5 % (37.0-80.0); Platelet Count 320 K/mm3 (142-424); Red Blood Count 4.89 M/mm3 (4.20-5.40); Red Cell Distribution Width 13.2 % (11.5-17.5)
== END 2021-12-21 02:12 | disposition home or self-care (01) ==
PROVIDERS: Emergency Provider Emergency Medicine; PCP Family Medicine
DX: R07.2 Precordial pain (principal); R00.1 Bradycardia, unspecified; M79.7 Fibromyalgia; Z91.018 Allergy to other foods; Z86.79 Personal history of other diseases of the circulatory system; Z82.49 Family history of ischemic heart disease and other diseases of the circulatory system
CPT/HCPCS: 71046; 71275; 80048; 84484; 84703; 85025; 93005; 96361; 96374; 96375; 99285; J2405; Q9967

== ENCOUNTER → 2022-05-01 12:51 | Outpatient (CLI) | payer OTHER, SELFPAY ==
--- NOTE | 2022-05-01 | CA_ITS ---
APPROVED REPORT Exam: Exercise Treadmill Technologist: Georgina Andrea, Ht: 5 ft 2 in Wt: 155 lbs BSA: 1.72 m2 HR: 69 bpm BP: 127/80 mmHg Medical History Medications: FluTICASONE,,,,, Stress Test Details Test: Manual Treadmill HR Resting HR: 85 bpm Max Heart Rate (APMHR): 187.717271 bpm Max HR Achieved: 163 bpm Target HR (85% APMHR): 158.177220 bpm % of APMHR: 87.17 Recovery HR: 91 bpm BP Resting BP: 134/77 mmHg Max BP: 144/76 mmHg Recovery BP: 138.0/63.0 mmHg ECG Resting ECG: NSR, T wave abn lead III Clinical Exercise duration: 09:00 min Highest Stage Achieved: III Exercise capacity: 10.1 METs Stress ECG Conclusion Exercised 9:00, completing stage III of Suhas Protocol. Max HR: 163 % of PM: 87% Max BP: 144/76 METs: 10.1 Test stopped due to: SOA, Fatigue Symptoms: Dizziness near peak HR. Atypical shooting CP at high HR. Arrhythmias/Ectopy: None ST-T Changes: Allowing for motion artifact the ST response to exercise appears to be within normal. Conclusion: Normal stress EKG & with atypical CP. GXT only (no imaging) Test Summary Stage 3 01:00 14.0 3.4 146 . . . . REST . . . . . . . Standing REST 02:55 0.0 0.0 85 . 134/ 77 . . Stage 1 01:00 10.0 1.7 105 . . . . Stage 1 02:00 10.0 1.7 113 . . . . Stage 1 03:00 10.0 1.7 115 . 138/ 78 . . Stage 2 01:00 12.0 2.5 127 . . . . Stage 2 02:00 12.0 2.5 129 . . . . Stage 2 03:00 12.0 2.5 135 . 144/ 76 . . Stage 3 01:00 14.0 3.4 146 . . . . Stage 3 02:00 14.0 3.4 157 . . . . Stage 3 03:00 14.0 3.4 161 . . . Stop exercise at 09:00 RECOVERY 01:00 0.0 0.0 136 . . . . RECOVERY . . . . . . . Protocol changed to Manual Treadmill RECOVERY 02:00 0.0 0.0 105 . 139/ 82 . . RECOVERY 03:00 0.0 0.0 93 . 129/ 73 . . RECOVERY 04:00 0.0 0.0 89 . 129/ 73 . . RECOVERY 05:00 0.0 0.0 89 . 138/ 63 . . RECOVERY 05:19 0.0 0.0 85 . 138/ 63 . . Electronically signed by : Tyrese Echols MD 05/01/2022 19:49:25
--- NOTE | 2022-05-01 | CA_ITS ---
APPROVED REPORT EXAM: Comprehensive 2D, Doppler, and color-flow Echocardiogram Library Acquisitions Technician: Malina Londono RT(R) Ht: 5 ft 2 in Wt: 155lbs BSA: 1.72 BP: 130/75 mmHg Indications: CP, ex smoker, palpitations, edema, SOB, family history of HD 2D Dimensions LVOT 1.77 cm (M/F) 1.5-2.5 M-Mode Dimensions RVDd 2.03 cm (0.9-2.6) LA Diam 2.64 cm (1.9-4.0) LVDd 4.15 cm (3.5-5.7) Ao Diam 2.45 cm (2.0-3.7) LVDs 3.18 cm (3.5-5.7) IVSd 0.59 cm (0.6-1.1) PWd 0.69 cm (0.6-1.1) EF (Teich) 47.30% FS 23.40% EDV (Teich) 76.40 mL ESV (Teich) 40.30 mL LV Diastology E Decel Time 270.00 (160-240 msec) E/A Ratio 1.4 MED E' 8.00 (< 7 cm/sec) E'/MED E' Ratio 10.41 (>14) LAT E' 15.20 (<10 cm/sec) E/LAT E' Ratio 5.48 (>14) Mitral Valve MV E Max Geraldo. 83.00 (40-130 cm/s) MV A Velocity 61.00 (40-130 cm/s) E/A Ratio 1.37 MV Decel. Time 270.00 (160-240 ms) MV PHT 79.00 ms Left Ventricle Left atrium normal size, left ventricle is normal size, there is no concentric left ventricular hypertrophy, estimated ejection fraction 55% with no regional wall motion abnormality, diastolic parameters are within normal range. Right Ventricle Right atrium and right ventricle are normal size and contractility. Aortic Valve Aortic valve is grossly normal there is no aortic stenosis or aortic insufficiency. Mitral Valve Mitral valve grossly normal, there is no mitral stenosis or mitral regurgitation. Tricuspid Valve Tricuspid valve grossly normal, there is no tricuspid regurgitation. Pulmonic Valve Pulmonic valve is poorly visualized. Great Vessels Aortic root is normal size. Inferior vena cava is normal size with normal inspiratory collapse. Pericardium No significant pericardial effusion noted. Conclusion 1. Normal left ventricular size, preserved left ventricular systolic function, estimated ejection fraction 55% with no regional wall motion abnormality, diastolic parameters are within normal range. 2. No significant pericardial effusion noted. 3. Inferior vena cava is normal size with normal inspiratory collapse. Electronically signed by : Tyrese Echols MD 05/01/2022 19:16:51
== END ==
PROVIDERS: PCP Nurse Practitioner Family; Visit Provider Physician Assistant
DX: R06.02 Shortness of breath (principal); R07.89 Other chest pain
CPT/HCPCS: 93017; 93306

== ENCOUNTER 2022-06-12 08:08 | Emergency (ER) | payer OTHER, SELFPAY ==
[2022-06-12 08:37] VITALS: BP 121/81; PULSE 63; RESP 16; TEMP 36.9; O2SAT 99; BMI 28.3
--- NOTE | 2022-06-12 08:47 | EXP.UTC ---
Discharge Plan Disposition Patient Disposition: Home, Self-Care Condition: Good Prescriptions Prescriptions: New ibuprofen [IBU] 800 mg tablet 800 mg PO Q8HP PRN (Reason: Moderate Pain) Qty: 30 0RF promethazine 25 mg Tablet 25 mg PO Q6H PRN (Reason: Nausea And Vomiting) Qty: 15 0RF No Action fluticasone propionate 50 mcg/actuation spray,suspension 1 spray intranasal DAILY PRN Rx Instructions: administer into each nostril Referrals Follow up/Referrals: Billy Guthrie APRN [Primary Care Provider] - See instructions Clinical Impressions Clinical Impression: Migraine with aura Stand Alone Forms Stand Alone Forms: Work/School Release Instructions Patient Instructions: Migraine -- Adult, DI for Migraine Discharge ED Provider: Marek Shah [facility] General Stated complaint: WADDELL Mode of Arrival: Ambulatory Source of Information: Patient Limitations: No Limitations Time Seen by Provider: 06/12/22 08:43 Description of Symptoms (Recalled from Triage Doc. by RN): pt comes in with c/o persistent headache since saturday. pt has hx of migraines. HEENT Symptoms (Recalled from RN notes): Yes Resp Symptoms (Recalled from RN notes): No Skin Symptoms (Recalled from RN notes): No MS Symptoms (Recalled from RN notes): No Functional Status (Recalled from RN notes): n/a History of Present Illness Provider Complaint: She c/o head ache for the past 3 days. She has a history of migraine headaches. She usually takes ibuprofen and it takes care of them but it has not worked this time. Related Data Home Medications Medication Instructions Recorded Confirmed fluticasone propionate 50 1 spray intranasal DAILY PRN 04/24/22 04/24/22 mcg/actuation nasal spray,suspension Previous Rx's Medication Instructions Recorded ibuprofen 800 mg tablet (IBU) 800 mg PO Q8HP PRN Moderate Pain 06/12/22 #30 tabs promethazine 25 mg tablet 25 mg PO Q6H PRN Nausea And 06/12/22 Vomiting #15 tabs Allergies Allergy/AdvReac Type Severity Reaction Status Date / Time meat Allergy Severe Other Uncoded 04/24/22 13:30 Worker's Comp Is this a Worker's Comp case?: No [facility] Medical History Bradycardia Fibromyalgia Mitral valve regurgitation Rheumatoid aortitis Surgical History Tubal ligation status Family History Mother Cancer Diabetes Stroke Grandmother Diabetes Social History Smoking Status: Former smoker smoking status stop date: 04/02/22 alcohol intake: current substance use type: denies use current occupational status: employed Travel in the last 8 weeks: Inside the [place] ROS Obtained: Yes All systems reviewed & no additional complaints except as documented Constitutional Constitutional: Denies chills and Denies fever(s) Eyes Eyes: Denies eye discharge ENT Ears, Nose, Mouth, and Throat: Denies dizziness, Denies otalgia and Denies sore throat Cardiovascular Cardiovascular: Denies chest pain Respiratory Respiratory: Denies shortness of breath, Denies chest congestion, Denies cough, Denies stridor and Denies wheezing Gastrointestinal Gastrointestingal: Denies nausea or vomiting Musculoskeletal Musculoskeletal: Reports system reviewed and no additional complaints, except as documented and Denies arthralgias Integumentary/Breasts Skin/Breast: Denies rash Neurologic Neurologic: Reports as per HPI, Denies dizziness and Denies paresthesias Allergic/Immunologic Allergic/Immunologic: Denies wheezing Physical Exam General General appearance: alert and in no apparent distress Head Head exam: atraumatic, normocephalic and normal inspection Eye Eye exam: Present normal appearance, PERRL and EOMI ENT ENT exam: Present normal exam, normal oropharynx, mucous membranes moist,
[2022-06-12 09:22] VITALS: BP 121/81; PULSE 63; RESP 16; TEMP 36.9
== END 2022-06-12 09:32 | disposition home or self-care (01) ==
PROVIDERS: Emergency Provider Nurse Practitioner Family; PCP Nurse Practitioner Family
DX: G43.109 Migraine with aura, not intractable, without status migrainosus (principal); R00.1 Bradycardia, unspecified; R11.2 Nausea with vomiting, unspecified; I34.0 Nonrheumatic mitral (valve) insufficiency; M06.9 Rheumatoid arthritis, unspecified; M79.7 Fibromyalgia; Z79.1 Long term (current) use of non-steroidal anti-inflammatories (NSAID); Z79.51 Long term (current) use of inhaled steroids; Z79.899 Other long term (current) drug therapy; Z87.891 Personal history of nicotine dependence; Z82.49 Family history of ischemic heart disease and other diseases of the circulatory system; Z83.3 Family history of diabetes mellitus; Z80.9 Family history of malignant neoplasm, unspecified
CPT/HCPCS: 96372; 99213; G0463

== ENCOUNTER → 2022-08-10 14:39 | Outpatient (CLI) | payer OTHER, SELFPAY ==
--- NOTE | 2022-08-10 14:43 | US_ITS ---
FINAL REPORT CLINICAL HISTORY: pelvic pain and abnormal uterine bleeding COMPARISON: June 24, 2021 FINDINGS: Transvaginal sonographic images of the pelvis were obtained. The uterus measures 9.7 x 5.5 x 5.0. The endometrium measures 9 mm, which is within normal limits. There is a 8 mm probable endometrial polyp. There is an 8 mm anterior uterine fibroid. The right ovary measures 3.4 cm in length and left ovary measures 2.4 cm in length. Normal blood flow seen to the ovaries. Small follicles are present in the left ovary. The previously seen left ovarian cyst has resolved. There is a 2.4 cm right ovarian cyst. There is no evidence of free fluid. IMPRESSION: 9 mm probable endometrial polyp. 8 mm anterior uterine fibroid. Previously seen left ovarian cyst has resolved. 2.4 cm right ovarian cyst. Reviewed, Interpreted and Dictated by Alcides Azul III, MD Transcribed by Clara Perry Authenticated and [facility]
[2022-08-10 16:56] LABS: Basophils # 0.1 K/mm3 (0-0.2); Basophils % 0.8 % (0.1-2.0); Eosinophils # 0.2 K/mm3 (0.0-0.4); Eosinophils % 2.2 % (0.1-12.0); Hematocrit 37.9 % (37.0-47.0); Hemoglobin 12.1 g/dL (12.2-16.2); Lymphocytes # 2.1 K/mm3 (0.7-4.5); Lymphocytes % 21.9 % (10-50); Mean Corpuscular HGB Conc 31.9 g/dL (31.8-35.4); Mean Corpuscular Volume 81.3 fl (81-99); Mean Platelet Volume 9.2 fl (7.4-10.4); Monocytes # 0.5 K/mm3 (0.1-1.0); Monocytes % 5.1 % (1.7-9.3); Neutrophils # 6.5 K/mm3 (1.8-7.8); Neutrophils % 69.9 % (37.0-80.0); Platelet Count 343 K/mm3 (142-424); Red Blood Count 4.66 M/mm3 (4.20-5.40); Red Cell Distribution Width 14.5 % (11.5-17.5); White Blood Count 9.4 K/mm3 (4.8-10.8)
[2022-08-10 19:29] LABS: Thyroid Stimulating Hormone 1.23 uIU/mL (0.465-4.68)
== END ==
PROVIDERS: PCP Nurse Practitioner Family; Visit Provider Obstetrics & Gynecology
DX: R10.2 Pelvic and perineal pain (principal); N93.9 Abnormal uterine and vaginal bleeding, unspecified
CPT/HCPCS: 36415; 76830; 84443; 85025

== ENCOUNTER → 2022-11-06 13:43 | Outpatient (CLI) | payer OTHER, SELFPAY ==
[2022-11-06 14:34] LABS: Basophils # 0.1 K/mm3 (0-0.2); Basophils % 1.1 % (0.1-2.0); Eosinophils # 0.3 K/mm3 (0.0-0.4); Eosinophils % 2.9 % (0.1-12.0); Hematocrit 39.6 % (37.0-47.0); Hemoglobin 12.8 g/dL (12.2-16.2); Lymphocytes % 27.7 % (10-50); Mean Corpuscular HGB Conc 32.3 g/dL (31.8-35.4); Mean Corpuscular Hemoglobin 25.4 pg (27.0-31.2); Mean Corpuscular Volume 78.6 fl (81-99); Mean Platelet Volume 8.6 fl (7.4-10.4); Monocytes # 0.6 K/mm3 (0.1-1.0); Monocytes % 5.6 % (1.7-9.3); Neutrophils # 6.8 K/mm3 (1.8-7.8); Neutrophils % 62.7 % (37.0-80.0); Platelet Count 385 K/mm3 (142-424); Red Blood Count 5.04 M/mm3 (4.20-5.40); Red Cell Distribution Width 15.1 % (11.5-17.5); White Blood Count 10.9 K/mm3 (4.8-10.8)
[2022-11-06 14:53] LABS: Alanine Aminotransferase 35 U/L (12-78); Albumin Level 4.2 g/dl (3.5-5.0); Albumin/Globulin Ratio 1.3 (1.1-1.8); Alkaline Phosphatase 73 U/L (38-126); Anion Gap 11.5 mEq/L (5-15); Aspartate Amino Transferase 41 U/L (14-36); Bilirubin,Total 0.2 mg/dl (0.2-1.3); Blood Urea Nitrogen 25 mg/dl (7-17); Carbon Dioxide 28 mmol/L (22.0-30.0); Chloride 101 mmol/L (98-107); Estimated Glomerular Filt Rate 96 ml/min (>60); GFR (African American) 116 ML/MIN (>60); Globulin 3.2 g/dL (1.3-3.2); Glucose 86 mg/dl (74-100); Potassium 4.5 mmoL/L (3.5-5.1); Sodium 136 mmol/L (136-145); Total Protein,Serum 7.4 g/dl (6.3-8.2)
[2022-11-06 15:10] LABS: HCG,Quantitative < 2 mIU/ml (0-5.42)
== END ==
PROVIDERS: PCP Nurse Practitioner Family; Visit Provider Obstetrics & Gynecology
DX: D25.9 Leiomyoma of uterus, unspecified (principal)
CPT/HCPCS: 80053; 84702; 85025

== ENCOUNTER 2022-11-12 07:17 | Observation (INO) | payer OTHER, SELFPAY ==
[2022-11-08 12:57] VITALS: BMI 31.4
[2022-11-12] VITALS (23 sets, daily range): BP systolic 103–138; BP diastolic 58–84; PULSE 56–82; RESP 16–22; TEMP 36.1–43; O2SAT 96–100
[2022-11-12 06:49] LABS: Coronavirus 19, PCR Not Detected (NotDetected); Influenza A, PCR Not Detected (NotDetected); Influenza B, PCR Not Detected (NotDetected)
--- NOTE | 2022-11-12 07:02 | EXP.ANES.CKL ---
[facility] Disclaimer: The information contained in this section may have been updated after the patient was seen, as this information can be updated by other users. Medical History Abnormal uterine bleeding ASCUS with positive high risk HPV Bradycardia Dysmenorrhea Fibromyalgia History of chlamydia infection Hx of ovarian cyst Mitral valve regurgitation Ovarian cyst Ovarian cyst Pelvic pain Rheumatoid arthritis Uterine fibroid Surgical History Tubal ligation status Family History Mother Cancer Diabetes Stroke Grandmother Diabetes Social History (Updated 11/12/22 @ 06:34 by Jessica Bartlett RN) Smoking Status: Former smoker smoking status stop date: 04/02/22 alcohol intake: current substance use type: denies use current occupational status: employed Travel in the last 8 weeks: None household members: significant other housing: house lives independently: Yes marital status: education level: high school service: Yes caffeine: Yes special sandra needs: No agree to transfusion: No do you feel safe at home: Yes victim of physical abuse: No victim of emotional abuse: No victim of sexual abuse: No would you like helpful sources: No [facility] Anesthesia Checklist Patient Identification Patient Identification: Arm Band and Family Structural Data Admitted From: Home Planned Operative Procedure/s: [facility] Consent for Planned Operative Procedure(s) Verified: Yes Verified Documents: Surgical Consent and History and Physical NPO Status Verified Time NPO: 00:00 Additional verifications Patient : No Anesthesia Reactions: No Hx Blood Transfusions: No Blood Transfusion Reaction: No Cephalosporin Allergy: No Previous Colonoscopy: No Airway Assessment C-Spine Mobility Assessed: Yes TMJ Mobility Assessed: Yes Dentition: Good Dentition Neurological Assessment Level of Consciousness: Awake, Alert, Appropriate and Follows Commands Hx Seizures: Yes Numbness or tingling in extremities: No Anesthesia Plan Anesthesia Risk discussed: Yes ASA Class: II Anesthesia Type: General Preoperative Comments Pre-Operative Comments: Hitory of seizure as child
--- NOTE | 2022-11-12 07:11 | EXP.HP ---
History of Present Illness *Admission Date: 11/12/22 *Reason for visit:: Abnormal uterined bleeding, chronic pelvic pain, dysmenorrhea *History of present illness: Ms Christiano Myers is a very pleasant 32 yo P3023 who presents for scheduled procedure. She complains of heavy, painful periods. She also complains of pelvic pain throughout the month and history of ovarian cysts. LMP was 10/25/22. She has had to wear adult diapers with the heavy bleeding. History of tubal ligation. P3022. History of x 3, first vaginal delivery was a stillborn.?Pap smear 07/25/22 was ASCUS, + HPV. Colposcopy 08/08/22 demonstrated LSIL. TSH is within normal limits, 1.23. Pelvic ultrasound demonstrated small endometrial polyp and small uterine fibroid, 8 mm; left ovarian cyst resolved; 2.4 cm right ovarian cyst. She requests definitive surgical intervention with hysterectomy, BSO. [facility] Disclaimer: The information contained in this section may have been updated after the patient was seen, as this information can be updated by other users. Medical History Abnormal uterine bleeding ASCUS with positive high risk HPV Bradycardia Dysmenorrhea Fibromyalgia History of chlamydia infection Hx of ovarian cyst Mitral valve regurgitation Ovarian cyst Ovarian cyst Pelvic pain Rheumatoid arthritis Uterine fibroid Surgical History Tubal ligation status Family History Mother Cancer Diabetes Stroke Grandmother Diabetes Social History Smoking Status: Former smoker smoking status stop date: 04/02/22 alcohol intake: current substance use type: denies use current occupational status: employed Travel in the last 8 weeks: None household members: significant other housing: house lives independently: Yes marital status: education level: high school service: Yes caffeine: Yes special sandra needs: No agree to transfusion: No do you feel safe at home: Yes victim of physical abuse: No victim of emotional abuse: No victim of sexual abuse: No would you like helpful sources: No Review of Systems Review of Systems Review of systems:: pertinent systems reviewed and negative unless documented below *Genitourinary Genitourinary: Reports abnormal menses, Reports dysmenorrhea and Reports pelvic pain Meds Home Medications and Allergies Home Medications Medication Instructions Recorded Confirmed Type No Known Home Medications 11/08/22 11/12/22 History New Prescriptions to Start Prescriptions: Allergies Allergy/AdvReac Type Severity Reaction Status Date / Time meat Allergy Severe Anaphylaxis Uncoded 11/08/22 12:52 Exam Data for Last 24 hours Vital signs and Labs for Last 24 Hours: Temp Pulse Resp BP Pulse Ox 97.0 F L 66 18 114/66 97 11/12/22 06:21 11/12/22 06:21 11/12/22 06:21 11/12/22 06:21 11/12/22 06:21 Laboratory Results - last 24 hr 11/12/22 06:41: SARS-CoV-2 (PCR) Not detected, Influenza A Untype (PCR) Not detected, Influenza Type B (PCR) Not detected Constitutional Constitutional: no acute distress *Routine HEENT Exam Head: Present normocephalic and atraumatic Eye: Absent conjunctivae pink ENT: Present mucous membranes moist *Routine Neck Exam Neck: Present full ROM *Routine Respiratory Exam Respiratory: Present CTA bilaterally and normal respiratory effort *Routine Cardiovascular Exam Cardiovascular: Present RRR *Routine Abdominal Exam Abdominal: Present soft and normoactive bowel sounds; Absent tenderness or distended *Routine Rectal Exam Rectal:: deferred *Routine Genitalia Exam Genitalia:: deferred *Routine Extremities Exam Extremities: Present full ROM; Absent edema or calf tenderness *Routine Neurological Exam Neurological: Present alert
--- NOTE | 2022-11-12 10:27 | EXP.OP.NOTE ---
Date of procedure: 11/12/22 Pre-op Diagnosis:: 1. Abnormal uterine bleeding 2. Chronic pelvic pain 3. Dysmenorrhea 4. History of ovarian cysts 5. Uterine fibroid Post-op Diagnosis:: 1. Abnormal uterine bleeding 2. Chronic pelvic pain 3. Dysmenorrhea 4. History of ovarian cysts 5. Uterine fibroid 6. Bilateral patent ureters Procedure performed:: 1. Total Laparoscopic Hysterectomy, bilateral salpingo oohporectomy 2. Cystoscopy Surgeon:: Casandra Chau DO Loading Unit Operator Crimping(s):: Jami Aguilar MD CONSUMER EXPERIENCE CONSULTANT:: Other (Abrahan Daniel CRNA) Anesthesia: GETA Estimated blood loss (mL): 300 Clinical Note:: Ms Christiano Myers is a very pleasant 32 yo P3023 who presents for scheduled procedure. She complains of heavy, painful periods. She also complains of pelvic pain throughout the month and history of ovarian cysts. LMP was 10/25/22. She has had to wear adult diapers with the heavy bleeding. History of tubal ligation. P3022. History of x 3, first vaginal delivery was a stillborn.?Pap smear 07/25/22 was ASCUS, + HPV. Colposcopy 08/08/22 demonstrated LSIL. TSH is within normal limits, 1.23. Pelvic ultrasound demonstrated small endometrial polyp and small uterine fibroid, 8 mm; left ovarian cyst resolved; 2.4 cm right ovarian cyst. She requests definitive surgical intervention with hysterectomy, BSO. Operative findings:: 1. On bimanual exam, uterus normal size and shape, midline. No adnexal masses palpated 2. On laparoscopic exam, Grossly normal appearing liver, stomach, bowel. Grossly normal appearing uterus, bilateral fallopian tubes with previous tubal ligation and bilateral ovaries 3. On cystoscopic exam, bladder mucosa grossly normal, no lesions or masses. Urine noted to spill from both ureters during exam Operative note:: Discussed risks, benefits, alternatives, expectations and possible complications of surgery. All questions addressed and answered. Patient wished to proceed with surgery. Patient was wheeled back to the operating room and placed under general anesthesia without difficulty. She was placed in the dorsal lithotomy position. She was prepped and draped in normal sterile fashion. She was given Ancef 2 grams prior to the start of the procedure. Beginning at the vagina, a lin catheter was inserted into the bladder and draining clear urine. Weighted Auvuard was placed in the vaginal vault. Anterior lip of the cervix was grasped with single tooth tenaculum. Uterus sounded to 9. Terrence dilators were used to dilate the cervix. Advincula uterine manipulator was inserted into the cervix with the colpotomy cup covering the cervix. Single tooth tenaculum was removed prior to complete placement of colpotomy cup over cervix. Uterine balloon was filled with 10cc of air. Vaginal balloon was filled with 60 cc of air. Weighted Auvard was removed. Attention was then turned to the abdomen. Skin just below the umbilicus was injected with 0.5% marcaine. A 2cm infraumbilical incision was made. Veress needle was tested and inserted intrabdominally. Opening pressure was 7 mm Hg. The peritoneal cavity was insulflated to 15 mm Hg. Laparoscope within 11 mm blunt trocar was inserted intrabdominally under direct visualization. Obturator and scope were removed. Laparoscope was inserted into the trocar sleeve. Abdomen and pelvis was viewed in its entirety. Examination of the peritoneal cavity revealed no signs of injury from entry and normal anatomic structures. See findings above. Pictures were taken. Bowel was swept cephalad with blunt probe. LLQ port site was transilluminated and injected with 0.5% marcaine. A 5 mm incision was made and 5 mm trocar was inserted intraabdominally under direct laparoscopic visualization. Obturator was removed and sleeve was left in place. Same procedure was performed in RLQ. Right fallopian tube was grasped at fimbriated end. Ligasure Hook was used to transect the right IP ligament, and uterine ovarian ligament to the cornua of the uterus. Right fallopian tube and
--- NOTE | 2022-11-12 10:39 | EXP.ANES.I ---
[facility] Anesthesia Record Part I Anesthesia Record I Intake, IV Amount: 1,700 Estimated blood loss (mL): 300 Urine output (mL): 150 Blood Products used (#): none Blood Pressure: 138/78 SaO2: 100 Pulse Rate: 82 Respiratory Rate: 22 Temperature: 97 F Patient is:: Drowsy and Stable Stable to PACU at:: 10:35
--- NOTE | 2022-11-12 11:30 | PC.NURSE ---
pt arrived to the floor from post op. pt has 3 incision sites with dermabond over them. incision sites c/d/i. pt alert and oriented at this time.
--- NOTE | 2022-11-12 11:30 | SUR.PHASEI ---
[id number] Chau regarding a medication she ordered in pacu, she stated to have pharmacy take it to OB and them admin it. relayed messaged to Ofe Busch RN who verbalized understanding. OB staff administering med during bedside report.
--- NOTE | 2022-11-12 15:22 | EXP.ANES.II ---
[facility] Anesthesia Record Part II Anesthesia Record Part II Discharge Time: 11:30 Destination: Obstetric PACU nurse assessment reviewed?: Yes Patient Condition:: Good Anesthesia Complications:: None Swallowing reflex intact?: Yes Cyanosis?: No Blood Pressure: 132/76 Pulse Rate: 64 Temperature: 97.5 F Mental Status: Alert & Oriented Pain level:: 0 Nausea and/or vomitting:: None Intake, IV Amount: 0
--- NOTE | 2022-11-12 15:48 | PC.NURSE ---
pt arrived to the unit earlier this date after procedure. pt alert and oriented. LS clear. abdomen soft with active bowel sounds. pt has 3 incision sites to abdomen that have dermabond over them. pt has c/o cramping to abdomen area that radiates to pelvic. pt denies any vaginal discharge at this time. pt ambulated to the restroom with standby assistance. pt was able to sit up in the chair for approx 30 minutes and has ate an ice cream at this time, pt tolerated well.
[2022-11-13] VITALS: BP 104/59; PULSE 84; RESP 18; TEMP 36.8; O2SAT 97
[2022-11-13 03:36] VITALS: BP 114/63; PULSE 78; RESP 17; TEMP 36.7; O2SAT 98
--- NOTE | 2022-11-13 04:46 | PC.NURSE ---
NO ACUTE CHANGES TO NOTE FROM MY PREVIOUS ASSESSMENT. PATIENT REMAINS ALERT AND ORIENTED X3. VSS. LUNG SOUNDS ARE CLEAR. HYPOACTIVE BOWEL SOUNDS NOTED IN ALL 4 QUADS. #20 GAUGE IN RIGHT HAND WITH LR INFUSING WITHOUT DIFFICULTY AT 125ML/HR. REMAINS ON BLAND DIET THAT SHE HAS TOLERATED WELL TONIGHT. SHE HAS AMBULATED WITH STANDBY ASSIST MULTIPLE TIMES. VOIDING WITH DIFFICULTY, PASSING FLATUS BUT REPORTS NO BOWEL MOVEMENT YET THIS SHIFT. PAIN IS BEING MANAGED AT THIS TIME WITH ORAL PAIN MEDICATIONS. SCANT AMOUNT OF VAGINAL BLEEDING NOTED ON CHUX . CHANGED WHEN UP TO BATHROOM. 3 LAPS SITES WITH DERMABOND, NOTED TO BE CLEAN AND DRY. NO DRAINAGE NOTED. DENIES NAUSEA OR VOMITING THIS SHIFT.
[2022-11-13 06:45] LABS: Basophils # 0.1 K/mm3 (0-0.2); Basophils % 0.3 % (0.1-2.0); Eosinophils % 0.1 % (0.1-12.0); Hematocrit 30.8 % (37.0-47.0); Hemoglobin 10.1 g/dL (12.2-16.2); Lymphocytes # 1.9 K/mm3 (0.7-4.5); Lymphocytes % 7.9 % (10-50); Mean Corpuscular HGB Conc 32.8 g/dL (31.8-35.4); Mean Corpuscular Hemoglobin 26.2 pg (27.0-31.2); Mean Platelet Volume 8.9 fl (7.4-10.4); Monocytes # 1.6 K/mm3 (0.1-1.0); Monocytes % 6.5 % (1.7-9.3); Neutrophils # 20.3 K/mm3 (1.8-7.8); Neutrophils % 85.2 % (37.0-80.0); Platelet Count 375 K/mm3 (142-424); Red Blood Count 3.85 M/mm3 (4.20-5.40); Red Cell Distribution Width 15.5 % (11.5-17.5); White Blood Count 23.8 K/mm3 (4.8-10.8)
[2022-11-13 06:50] LABS: Anion Gap 9.2 mEq/L (5-15); Blood Urea Nitrogen 11 mg/dl (7-17); Calcium 8.2 mg/dl (8.4-10.2); Carbon Dioxide 30 mmol/L (22.0-30.0); Chloride 104 mmol/L (98-107); Creatinine Clearance Estimated 139 mL/min (50-200); Estimated Glomerular Filt Rate 96 ml/min (>60); GFR (African American) 116 ML/MIN (>60); Glucose 85 mg/dl (74-100); Potassium 4.2 mmoL/L (3.5-5.1); Sodium 139 mmol/L (136-145)
[2022-11-13 06:56] LABS: MANUAL DIFFERENTIAL MANUAL DIFFERENTIAL (MANUAL DIFF)
[2022-11-13 07:15] LABS: Lymphocytes % 8 % (10-50); Monocytes % 3 % (2-9); Neutrophils % 89 % (42-76); Platelet Estimate Normal; RBC Morphology Normal; Total Cells Counted 100
[2022-11-13 08:25] VITALS: BP 125/73; PULSE 86; RESP 17; TEMP 36.7; O2SAT 100
--- NOTE | 2022-11-13 08:44 | EXP.DC.SUM ---
General Admission date:: 11/12/22 Discharge date: 11/13/22 HPI HPI HPI: POD # 1 s/p TLH, BSO, cystoscopy Resting comfortably in bed. Pain is well controlled. Admits to light vaginal spotting. Voiding without difficulty. Passing flatus. Tolerating regular diet. Denies fever/chills, chest pain and shortness of breath. Denies headaches, dizziness and lower extremity swelling. Hospital Course Hospital Course Hospital Course: Ms Christiano Myers is a very pleasant 32 yo P3023 who presented to [facility] for scheduled procedure. She complains of heavy, painful periods. She also complains of pelvic pain throughout the month and history of ovarian cysts. LMP was 10/25/22. She has had to wear adult diapers with the heavy bleeding. History of tubal ligation. P3022. History of x 3, first vaginal delivery was a stillborn.?Pap smear 07/25/22 was ASCUS, + HPV. Colposcopy 08/08/22 demonstrated LSIL. TSH is within normal limits, 1.23. Pelvic ultrasound demonstrated small endometrial polyp and small uterine fibroid, 8 mm; left ovarian cyst resolved; 2.4 cm right ovarian cyst. She requests definitive surgical intervention with hysterectomy, BSO. She underwent TLH, BSO, cystoscopy on 11/12/22. She did well postoperatively. Pain controlled with medication. Vital signs stable, afebrile. She was voiding without difficulty and passing flatus. She was tolerating regular diet and passing flatus. She denied fever/chills, chest pain and shortness of breath. Heart was regular rate and rhythm. Lungs clear to auscultation. Normal bowel sounds present in all 4 quadrants. Abdomen soft, nontender on exam. No lower extremity swelling. WBC POD # 1 was 23.8. She admitted that her urethra was burning a few days prior to surgery. Urine culture sent. Script for metronidazole also given upon discharge. Normal hospital course. Exam Data for Last 24 hours Vital signs and Labs for Last 24 Hours: Temp Pulse Resp BP Pulse Ox 98.0 F 78 17 114/63 98 11/13/22 03:36 11/13/22 03:36 11/13/22 03:36 11/13/22 03:36 11/13/22 03:36 Laboratory Results - last 24 hr 11/13/22 06:25: WBC 23.8 H*, RBC 3.85 L, Hgb 10.1 L, Hct 30.8 L, MCV 80.0 L, MCH 26.2 L, MCHC 32.8, RDW 15.5, Plt Count 375, MPV 8.9, Neut % (Auto) 85.2 H, Lymph % (Auto) 7.9 L, Cannon % (Auto) 6.5, Eos % (Auto) 0.1, Baso % (Auto) 0.3, Neut # (Auto) 20.3 H, Lymph # (Auto) 1.9, Cannon # (Auto) 1.6 H, Eos # (Auto) 0.0, Baso # (Auto) 0.1, Total Counted 100, Neutrophils % (Manual) 89 H, Lymphocytes % (Manual) 8 L, Monocytes % (Manual) 3, Platelet Estimate Normal, RBC Morphology Normal 11/13/22 06:25: Sodium 139, Potassium 4.2, Chloride 104, Carbon Dioxide 30, Anion Gap 9.2, BUN 11, Creatinine 0.70, Estimated Creat Clear 139, Estimated GFR 96, Est GFR ( Amer) 116, Glucose 85, Calcium 8.2 L I & O for Last 24 hours: Intake & Output 11/10/22 11/11/22 11/12/22 11/13/22 23:59 23:59 23:59 23:59 Intake Total 1700 / 1700 1875 / 1875 Output Total 200 / 200 100 / 100 Balance 1500 / 1500 1775 / 1775 Constitutional Constitutional: no acute distress *Routine HEENT Exam Head: Present normocephalic and atraumatic Eye: Absent conjunctivae pink ENT: Present mucous membranes moist and dentition normal *Routine Neck Exam Neck: Present full ROM *Routine Respiratory Exam Respiratory: Present CTA bilaterally and normal respiratory effort *Routine Cardiovascular Exam Cardiovascular: Present RRR *Routine Abdominal Exam Abdominal: Present soft and normoactive bowel sounds; Absent tenderness or distended Comments: incisions clean/dry/intact with dermabond overtop *Routine Rectal Exam Patient deferred: visual exam *Routine Exam Patient deferred: external exam *Routine Extremities Exam Extremities: Present full ROM; Absent edema or calf tenderness *Routine Neurological Exam Neurological: Present alert, oriented X3 and moving all extremities Routine Psychiatric Exam Psychiatric: Present normal affect and cooperative Results D
[2022-11-13 08:48] VITALS: O2SAT 100
[2022-11-13 08:49] LABS: Microscopic, Urine URINE MICROSCOPIC (MICROSCOPIC)
[2022-11-13 08:50] VITALS: BP 125/73; PULSE 86; RESP 18; TEMP 36.7; O2SAT 100
[2022-11-13 08:52] LABS: Appearance,Urine CLEAR (Clear); Bilirubin,Urine Negative (Negative); Blood, Urine TRACE-I (Negative); Color,Urine YELLOW (Yellow); Glucose,Urine (UA) Negative (Negative); Ketones,Urine Negative (Negative); Leukocyte Esterase,Urine Negative (Negative); Nitrate,Urine Negative (Negative); Protein,Urine Negative (Negative); Specific Gravity, Urine <= 1.005 (1.005-1.030); Urobilinogen,Urine 0.2 EU/dl (0.2)
[2022-11-13 09:06] LABS: Bacteria,Urine Trace /lpf; Squamous Epithelial Cell,Urine Occasional #/hpf (0-5); WBC,Urine Occasional #/hpf (0-3)
--- NOTE | 2022-11-13 12:30 | PC.NURSE ---
Discharge education provided, questions encouraged and answered. Pt. v/u.
--- NOTE | 2022-11-13 12:50 | PC.NURSE ---
Pt. left unit via wheelchair, accompanied by S.O and staff x1.
== END 2022-11-13 12:50 | disposition home or self-care (01) ==
LOC: OB 07:20
PROVIDERS: Admitting Provider Obstetrics & Gynecology; PCP Nurse Practitioner Family; Visit Provider Obstetrics & Gynecology
PROC: (CPT 58571; principal; 2022-11-12 07:30)
DX: D25.9 Leiomyoma of uterus, unspecified (principal); N93.9 Abnormal uterine and vaginal bleeding, unspecified; I34.0 Nonrheumatic mitral (valve) insufficiency; M06.9 Rheumatoid arthritis, unspecified; Z87.891 Personal history of nicotine dependence; R10.2 Pelvic and perineal pain; N94.6 Dysmenorrhea, unspecified; N83.209 Unspecified ovarian cyst, unspecified side
CPT/HCPCS: 58571; 36415; 80048; 81001; 85007; 85025; 96374; C9803; G0378; J2405; J2505; U0003; U0005